=== PATIENT | male | born 1955 | race Caucasian/White ===

== ENCOUNTER → 2017-03-12 | Outpatient (CLI) | payer OTHER | END | disposition home or self-care (01) | LOC: KCIC MRI 14:22 | PROVIDERS: ATTEND Orthopaedic Surgery ==

== ENCOUNTER → 2017-03-13 | Outpatient (CLI) | payer OTHER ==
--- NOTE | 2017-03-13 12:00 | KCIC ---
MRI Cervical Spine Without Contrast History: New onset left shoulder pain, pain and weakness of the left arm for 3 weeks Technique: Multiplanar, multi sequential noncontrast MR imaging was performed of the cervical spine. Comparison: None Findings: There is some motion degradation. Cervical cord caliber is within normal limits without significant focal signal abnormality. There is no significant abnormality of the cervical medullary junction. There is straightening of cervical spine. Cervical vertebral body stature is maintained. There is negligible anterior spondylolisthesis C3-4, C5-6, and C2-3. There is mild degenerative disc disease C4-5, mild disc desiccation at other levels. There is posterior annular tear C6-7. There is no significant marrow edema. C2-C3: Neural foramina and spinal canal are adequate. C3-C4: There is left facet hypertrophic change, also minimal uncovertebral degenerative change. Central canal is borderline 10 mm. Right neural foramen is adequate, moderate to severe narrowing of the left neural foramen. C4-C5: There is protrusion eccentric to the far left recess extending to the margin of the left neural foramen estimated at 4-5 mm AP by 5 mm CC by 7 mm transverse. There is [id number] narrowing of the far left lateral recess. There is left facet hypertrophic change. There is likely moderate to severe narrowing of the left neural foramen. Right neural foramen is overall adequate. Central canal is minimally narrowed to 8 to 9 mm. C5-C6: There is minimal disc osteophyte complex and bulge. Central canal is minimally narrowed to 8 to 9 mm. There is mild left uncovertebral degenerative change. There is fairly severe left facet hypertrophic change. Right neural foramen is overall adequate, severe narrowing of the left neural foramen. C6-C7: There is negligible posterior protrusion. Central canal is borderline 10 mm. Neural foramina are adequate. C7-T1: Spinal canal and neural foramina are adequate. Impression: 1. There is [id number] narrowing of the far left lateral recess at C4-5 by protrusion. There is mild spinal stenosis C5-6. 2. There is neural foramina compromise as stated greatest on the left C3-4 to C5-6 mostly from uncovertebral and facet degenerative change, protrusion also at the proximal margin at C4-5. 3. There is mild degenerative disc disease C4-5. 4. There is multilevel facet degenerative change, mild abnormal alignment as stated. Electronically signed by: Lito Miner MD (03/13/2017 11:57 AM) [id number]
== END | disposition home or self-care (01) ==
LOC: KCIC MRI 10:42
PROVIDERS: ATTEND Orthopaedic Surgery
DX: M48.02 Spinal stenosis, cervical region (principal); M50.322 Other cervical disc degeneration at C5-C6 level; M50.321 Other cervical disc degeneration at C4-C5 level; M50.221 Other cervical disc displacement at C4-C5 level; M25.512 Pain in left shoulder; R53.1 Weakness
CPT/HCPCS: 72141